=== PATIENT | male | born 1970 | race African-American/Black ===

== ENCOUNTER 2017-05-11 08:17 | Inpatient (IN) | payer OTHER ==
[2017-05-11 09:47] VITALS: BMI 25.7
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
[2017-05-11] MEDS ORDERED: MAGNESIUM HYDROX 2400MG/30ML ORAL SUSPENSION 30 ML CUP PO PRN (13:38)
[2017-05-11] MEDS ORDERED: LOPERAMIDE HCL 2 MG CAPSULE PO PRN (13:38)
[2017-05-11] MEDS ORDERED: MAG HYDROX/AL HYDROX/SIMETH 30 ML UNIT-DOSE CUP PO PRN (13:38)
[2017-05-11] MEDS ORDERED: NICOTINE POLACRILEX 4 MG GUM BUC PRN (13:38)
[2017-05-11] MEDS ORDERED: hydrOXYzine PAMOATE 50 MG CAPSULE (FP) PO PRN (13:38)
[2017-05-11] MEDS ORDERED: guaiFENesin/D-METHORPHAN HB 10 ML UNIT-DOSE CUPS PO PRN (13:38)
[2017-05-11] MEDS ORDERED: P-EPHED 60MG/TRIPROLIDI 2.5MG TABLET PO PRN (13:38)
[2017-05-11] MEDS ORDERED: MAGNESIUM CITRATE 300 ML BOTTLE PO PRN (13:38)
[2017-05-11] MEDS ORDERED: MENTHOL/PHENOL 1 EACH UD MM PRN (13:38)
[2017-05-11] MEDS ORDERED: METHADONE HCL 5 MG TABLET PO ONE (14:15)
[2017-05-11] MEDS ORDERED: TUBERCULIN PPD 5 TU/0.1ML VIAL ID ONE (15:19)
[2017-05-11] MEDS: NICOTINE 21 MG/24 HOURS TOPICAL PATCH TD SCH (15:21)
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
[2017-05-11 16:58] LABS: HEMATOCRIT 40.3 % (35.4-49); HEMOGLOBIN 13.5 GM/dL (11.7-16.9); MCH 30.2 pg (25.7-33.7); MCHC 33.5 g/dl (32.0-35.9); MEAN CELL VOLUME 90.1 fl (80-96); MEAN PLT VOLUME 9.9 fl (7.5-11.1); PLATELET COUNT 173 K/MM3 (134-434); RBC 4.48 M/mm3 (4.00-5.60); RDW 12.2 % (11.9-15.9); WHITE BLOOD COUNT 3.7 K/mm3 (4.0-10.0)
[2017-05-11 17:14] LABS: ALBUMIN 3.9 g/dl (3.4-5.0); ANION GAP 9 (8-16); BLOOD UREA NITROGEN 15 mg/dL (7-18); CALCIUM 9.1 mg/dL (8.5-10.1); CHLORIDE 105 mmol/L (98-107); CO2 28 mmol/L (21-32); CREATININE 1.2 mg/dL (0.7-1.3); GLUCOSE,RANDOM 88 mg/dL (74-106); POTASSIUM 3.8 mmol/L (3.5-5.1); SGOT/AST 26 U/L (15-37); SGPT/ALT 26 U/L (12-78); SODIUM 142 mmol/L (136-145)
[2017-05-11 17:16] LABS: ALK PHOS 103 U/L (45-117); BILIRUBIN,TOTAL 0.6 mg/dL (0.2-1.0)
[2017-05-11 17:28] LABS: SICKLE CELL SCREEN NEGATIVE (NEGATIVE)
[2017-05-11] MEDS: MIRTAZAPINE 15 MG TABLET (FP) PO SCH (21:11)
[2017-05-11] MEDS: THIAMINE HCL 100 MG TABLET (FP) PO SCH (21:11)
[2017-05-11] MEDS ORDERED: MELATONIN 5 MG TABLETS PO PRN (22:00)
[2017-05-12 03:38] LABS: URINE APPEARANCE TURBID; URINE BILIRUBIN NEGATIVE (<2.0 mg/dL); URINE BLOOD NEGATIVE (NEGATIVE); URINE COLOR YELLOW; URINE GLUCOSE (UA) NEGATIVE (NEGATIVE); URINE KETONE TRACE (NEGATIVE); URINE LEUK ESTERASE NEGATIVE (NEGATIVE); URINE NITRITE NEGATIVE (NEGATIVE); URINE PROTEIN NEGATIVE (NEGATIVE)
[2017-05-12] MEDS: METHADONE HCL 5 MG TABLET PO SCH (06:26)
[2017-05-12] MEDS: PRENATAL VITAMINS W/ FOLIC ACID TABLET (FP) PO SCH (10:14)
[2017-05-12] MEDS: NICOTINE 21 MG/24 HOURS TOPICAL PATCH TD SCH (10:15)
[2017-05-12] MEDS: IBUPROFEN 400 MG TABLET (FP) PO PRN (11:48)
[2017-05-12] MEDS: LIDOCAINE VISCOUS 2% ORAL/TOP 20 ML UNIT-DOSE CUP MM PRN (11:51)
--- NOTE | 2017-05-12 18:20 | EKG ---
Test Reason : Blood Pressure : / mmHG Vent. Rate : 066 BPM Atrial Rate : 066 BPM P-R Int : 164 ms QRS Dur : 086 ms QT Int : 390 ms P-R-T Axes : 034 006 007 degrees QTc Int : 408 ms NORMAL SINUS RHYTHM SEPTAL INFARCT ABNORMAL ECG NO PREVIOUS ECGS AVAILABLE Confirmed by MD ALEXUS, BRIAN ([id number]) on 05/12/2017 6:20:01 PM Referred By: Confirmed By:BRIAN VAUGHAN MD
[2017-05-12] MEDS: MIRTAZAPINE 15 MG TABLET (FP) PO SCH (21:31)
[2017-05-12] MEDS: THIAMINE HCL 100 MG TABLET (FP) PO SCH (21:31)
[2017-05-13] MEDS: METHADONE HCL 5 MG TABLET PO SCH (07:56)
[2017-05-13] MEDS: PRENATAL VITAMINS W/ FOLIC ACID TABLET (FP) PO SCH (10:20)
[2017-05-13] MEDS: NICOTINE 21 MG/24 HOURS TOPICAL PATCH TD SCH (10:21)
[2017-05-13] MEDS: TOLNAFTATE 1% CREAM 15 GM TUBE TP SCH ×2 (10:23→21:40)
[2017-05-13] MEDS: IBUPROFEN 400 MG TABLET (FP) PO PRN (14:21)
[2017-05-13] MEDS: LIDOCAINE VISCOUS 2% ORAL/TOP 20 ML UNIT-DOSE CUP MM PRN (14:23)
[2017-05-13] MEDS: MIRTAZAPINE 15 MG TABLET (FP) PO SCH (21:40)
[2017-05-13] MEDS: THIAMINE HCL 100 MG TABLET (FP) PO SCH (21:40)
[2017-05-14] MEDS: METHADONE HCL 5 MG TABLET PO SCH (06:33)
[2017-05-14] MEDS: IBUPROFEN 400 MG TABLET (FP) PO PRN (09:26)
[2017-05-14] MEDS: TOLNAFTATE 1% CREAM 15 GM TUBE TP SCH ×2 (09:27→21:32)
[2017-05-14] MEDS: NICOTINE 21 MG/24 HOURS TOPICAL PATCH TD SCH (09:27)
[2017-05-14] MEDS: PRENATAL VITAMINS W/ FOLIC ACID TABLET (FP) PO SCH (09:27)
[2017-05-14] MEDS: LIDOCAINE VISCOUS 2% ORAL/TOP 20 ML UNIT-DOSE CUP MM PRN (09:29)
--- NOTE | 2017-05-14 10:54 | PN ---
[facility] Progress Note Note: Patient presents with burning sensation to right tip of toes. Laboratory Tests 05/11/17 05/11/17 05/11/17 13:00 13:00 13:00 WBC 3.7 L RBC 4.48 Hgb 13.5 Hct 40.3 MCV 90.1 MCH 30.2 MCHC 33.5 RDW 12.2 Plt Count 173 MPV 9.9 Sickle Cell Screen Negative Sodium 142 Potassium 3.8 Chloride 105 Carbon Dioxide 28 Anion Gap 9 BUN 15 Creatinine 1.2 Creat Clearance w eGFR > 60 Random Glucose 88 Calcium 9.1 Total Bilirubin 0.6 AST 26 ALT 26 Alkaline Phosphatase 103 Total Protein 8.0 Albumin 3.9 Urine Color Urine Appearance Urine pH Ur Specific [place] Urine Protein Urine Glucose (UA) Urine Ketones Urine Blood Urine Nitrite Urine Bilirubin Urine Urobilinogen Ur Leukocyte Esterase RPR Titer Nonreactive 05/11/17 23:51 WBC RBC Hgb Hct MCV MCH MCHC RDW Plt Count MPV Sickle Cell Screen Sodium Potassium Chloride Carbon Dioxide Anion Gap BUN Creatinine Creat Clearance w eGFR Random Glucose Calcium Total Bilirubin AST ALT Alkaline Phosphatase Total Protein Albumin Urine Color Yellow Urine Appearance Turbid Urine pH 5.0 Ur Specific [place] 1.030 Urine Protein Negative Urine Glucose (UA) Negative Urine Ketones Trace H Urine Blood Negative Urine Nitrite Negative Urine Bilirubin Negative Urine Urobilinogen 2.0 Ur Leukocyte Esterase Negative RPR Titer Vital Signs Temperature 98.1 F 05/14/17 06:30 Pulse Rate 74 05/14/17 06:30 Respiratory Rate 20 05/14/17 06:30 Blood Pressure 120/69 05/14/17 06:30 O2 Sat by Pulse Oximetry (%) OBJ: Awake and oriented x 3. In NAD Car: S1S2, RRR, no murmurs or gallops Ext: Right foot without edema. +pedal pulse, no discoloration or redness noted. A/'P: Peripheral neuropathy Will start gabapentin 100mg BID Continue to monitor clinically
[2017-05-14] MEDS: GABAPENTIN 100 MG CAPSULE (FP) PO SCH ×2 (14:15→21:32)
[2017-05-14] MEDS: THIAMINE HCL 100 MG TABLET (FP) PO SCH (21:32)
[2017-05-14] MEDS: MIRTAZAPINE 15 MG TABLET (FP) PO SCH (21:32)
[2017-05-15] MEDS: METHADONE HCL 5 MG TABLET PO SCH (06:37)
[2017-05-15] MEDS: GABAPENTIN 100 MG CAPSULE (FP) PO SCH ×3 (06:38→21:15)
[2017-05-15] MEDS: NICOTINE 21 MG/24 HOURS TOPICAL PATCH TD SCH (10:02)
[2017-05-15] MEDS: PRENATAL VITAMINS W/ FOLIC ACID TABLET (FP) PO SCH (10:02)
[2017-05-15] MEDS: TOLNAFTATE 1% CREAM 15 GM TUBE TP SCH ×2 (10:02→21:15)
[2017-05-15] MEDS: IBUPROFEN 400 MG TABLET (FP) PO PRN ×2 (10:51→20:18)
--- NOTE | 2017-05-15 15:01 | PN ---
[facility] Progress Note Note: Patient reports feeling nauseous after taking methadone, requested methadone dose to decrease by 5mg Vital Signs Temperature 98.3 F 05/15/17 07:23 Pulse Rate 97 H 05/15/17 07:23 Respiratory Rate 17 05/15/17 07:23 Blood Pressure 109/82 05/15/17 07:23 O2 Sat by Pulse Oximetry (%) Laboratory Last Values WBC 3.7 K/mm3 (4.0-10.0) L 05/11/17 13:00 RBC 4.48 M/mm3 (4.00-5.60) 05/11/17 13:00 Hgb 13.5 GM/dL (11.7-16.9) 05/11/17 13:00 Hct 40.3 % (35.4-49) 05/11/17 13:00 MCV 90.1 fl (80-96) 05/11/17 13:00 MCH 30.2 pg (25.7-33.7) 05/11/17 13:00 MCHC 33.5 g/dl (32.0-35.9) 05/11/17 13:00 RDW 12.2 % (11.9-15.9) 05/11/17 13:00 Plt Count 173 K/MM3 (134-434) 05/11/17 13:00 MPV 9.9 fl (7.5-11.1) 05/11/17 13:00 Sickle Cell Screen Negative (NEGATIVE) 05/11/17 13:00 Sodium 142 mmol/L (136-145) 05/11/17 13:00 Potassium 3.8 mmol/L (3.5-5.1) 05/11/17 13:00 Chloride 105 mmol/L (98-107) 05/11/17 13:00 Carbon Dioxide 28 mmol/L (21-32) 05/11/17 13:00 Anion Gap 9 (8-16) 05/11/17 13:00 BUN 15 mg/dL (7-18) 05/11/17 13:00 Creatinine 1.2 mg/dL (0.7-1.3) 05/11/17 13:00 Creat Clearance w eGFR > 60 (>60) 05/11/17 13:00 Random Glucose 88 mg/dL (74-106) 05/11/17 13:00 Calcium 9.1 mg/dL (8.5-10.1) 05/11/17 13:00 Total Bilirubin 0.6 mg/dL (0.2-1.0) 05/11/17 13:00 AST 26 U/L (15-37) 05/11/17 13:00 ALT 26 U/L (12-78) 05/11/17 13:00 Alkaline Phosphatase 103 U/L (45-117) 05/11/17 13:00 Total Protein 8.0 g/dl (6.4-8.2) 05/11/17 13:00 Albumin 3.9 g/dl (3.4-5.0) 05/11/17 13:00 Urine Color Yellow 05/11/17 23:51 Urine Appearance Turbid 05/11/17 23:51 Urine pH 5.0 (5.0-8.0) 05/11/17 23:51 Ur Specific [place] 1.030 (1.001-1.035) 05/11/17 23:51 Urine Protein Negative (NEGATIVE) 05/11/17 23:51 Urine Glucose (UA) Negative (NEGATIVE) 05/11/17 23:51 Urine Ketones Trace (NEGATIVE) H 05/11/17 23:51 Urine Blood Negative (NEGATIVE) 05/11/17 23:51 Urine Nitrite Negative (NEGATIVE) 05/11/17 23:51 Urine Bilirubin Negative (<2.0 mg/dL) 05/11/17 23:51 Urine Urobilinogen 2.0 mg/dL (0.2-1.0) 05/11/17 23:51 Ur Leukocyte Esterase Negative (NEGATIVE) 05/11/17 23:51 RPR Titer Nonreactive (NONREACTIVE) 05/11/17 13:00 Methadone decrease from 15 mg to 10 mg Increase fluids Continue to monitor
[2017-05-15] MEDS: THIAMINE HCL 100 MG TABLET (FP) PO SCH (21:15)
[2017-05-15] MEDS: MIRTAZAPINE 15 MG TABLET (FP) PO SCH (21:15)
[2017-05-16] MEDS: GABAPENTIN 100 MG CAPSULE (FP) PO SCH ×3 (06:09→21:22)
[2017-05-16] MEDS: METHADONE HCL 10 MG TABLET PO SCH (06:09)
[2017-05-16] MEDS: TOLNAFTATE 1% CREAM 15 GM TUBE TP SCH ×2 (10:10→21:23)
[2017-05-16] MEDS: PRENATAL VITAMINS W/ FOLIC ACID TABLET (FP) PO SCH (10:10)
[2017-05-16] MEDS: NICOTINE 21 MG/24 HOURS TOPICAL PATCH TD SCH (10:10)
[2017-05-16] MEDS: LIDOCAINE VISCOUS 2% ORAL/TOP 20 ML UNIT-DOSE CUP MM PRN ×2 (10:11→21:50)
[2017-05-16] MEDS: IBUPROFEN 400 MG TABLET (FP) PO PRN ×2 (12:09→21:59)
[2017-05-16] MEDS: THIAMINE HCL 100 MG TABLET (FP) PO SCH (21:22)
[2017-05-16] MEDS: MIRTAZAPINE 15 MG TABLET (FP) PO SCH (21:22)
[2017-05-17] MEDS: IBUPROFEN 400 MG TABLET (FP) PO PRN ×2 (06:03→13:06)
[2017-05-17] MEDS: METHADONE HCL 10 MG TABLET PO SCH (06:03)
[2017-05-17] MEDS: GABAPENTIN 100 MG CAPSULE (FP) PO SCH ×3 (06:03→21:23)
[2017-05-17] MEDS: LIDOCAINE VISCOUS 2% ORAL/TOP 20 ML UNIT-DOSE CUP MM PRN ×2 (06:03→21:26)
[2017-05-17] MEDS: PRENATAL VITAMINS W/ FOLIC ACID TABLET (FP) PO SCH (10:05)
[2017-05-17] MEDS: NICOTINE 21 MG/24 HOURS TOPICAL PATCH TD SCH (10:05)
[2017-05-17] MEDS: TOLNAFTATE 1% CREAM 15 GM TUBE TP SCH ×2 (10:07→21:24)
[2017-05-17] MEDS: ACETAMINOPHEN 325 MG TABLET (FP) PO PRN ×2 (11:28→17:20)
[2017-05-17] MEDS: THIAMINE HCL 100 MG TABLET (FP) PO SCH (21:23)
[2017-05-17] MEDS: MIRTAZAPINE 15 MG TABLET (FP) PO SCH (21:23)
[2017-05-18] MEDS: GABAPENTIN 100 MG CAPSULE (FP) PO SCH ×3 (06:04→21:16)
[2017-05-18] MEDS: METHADONE HCL 10 MG TABLET PO SCH (06:04)
[2017-05-18] MEDS: PRENATAL VITAMINS W/ FOLIC ACID TABLET (FP) PO SCH (10:11)
[2017-05-18] MEDS: TOLNAFTATE 1% CREAM 15 GM TUBE TP SCH ×2 (10:11→21:16)
[2017-05-18] MEDS: NICOTINE 21 MG/24 HOURS TOPICAL PATCH TD SCH (10:11)
[2017-05-18] MEDS: IBUPROFEN 400 MG TABLET (FP) PO PRN ×2 (10:13→21:16)
[2017-05-18] MEDS: MIRTAZAPINE 15 MG TABLET (FP) PO SCH (21:16)
[2017-05-18] MEDS: THIAMINE HCL 100 MG TABLET (FP) PO SCH (21:16)
[2017-05-19] MEDS: METHADONE HCL 10 MG TABLET PO SCH (07:09)
[2017-05-19] MEDS: GABAPENTIN 100 MG CAPSULE (FP) PO SCH ×3 (07:09→21:18)
[2017-05-19] MEDS: IBUPROFEN 400 MG TABLET (FP) PO PRN ×3 (07:10→21:19)
[2017-05-19] MEDS: TOLNAFTATE 1% CREAM 15 GM TUBE TP SCH ×2 (10:56→22:16)
[2017-05-19] MEDS: PRENATAL VITAMINS W/ FOLIC ACID TABLET (FP) PO SCH (10:56)
[2017-05-19] MEDS: NICOTINE 21 MG/24 HOURS TOPICAL PATCH TD SCH (10:56)
[2017-05-19] MEDS: THIAMINE HCL 100 MG TABLET (FP) PO SCH (21:18)
[2017-05-19] MEDS: MIRTAZAPINE 15 MG TABLET (FP) PO SCH (21:18)
[2017-05-20] MEDS: GABAPENTIN 100 MG CAPSULE (FP) PO SCH ×3 (06:56→21:27)
[2017-05-20] MEDS: IBUPROFEN 400 MG TABLET (FP) PO PRN ×3 (06:56→21:28)
[2017-05-20] MEDS: METHADONE HCL 10 MG TABLET PO SCH (06:57)
[2017-05-20] MEDS: PRENATAL VITAMINS W/ FOLIC ACID TABLET (FP) PO SCH (10:25)
[2017-05-20] MEDS: NICOTINE 21 MG/24 HOURS TOPICAL PATCH TD SCH (10:25)
[2017-05-20] MEDS: TOLNAFTATE 1% CREAM 15 GM TUBE TP SCH ×2 (10:25→21:27)
[2017-05-20] MEDS: THIAMINE HCL 100 MG TABLET (FP) PO SCH (21:27)
[2017-05-20] MEDS: MIRTAZAPINE 15 MG TABLET (FP) PO SCH (21:27)
[2017-05-21] MEDS: IBUPROFEN 400 MG TABLET (FP) PO PRN ×3 (06:49→21:13)
[2017-05-21] MEDS: GABAPENTIN 100 MG CAPSULE (FP) PO SCH ×3 (06:49→21:13)
[2017-05-21] MEDS: METHADONE HCL 10 MG TABLET PO SCH (06:51)
[2017-05-21] MEDS: PRENATAL VITAMINS W/ FOLIC ACID TABLET (FP) PO SCH (10:19)
[2017-05-21] MEDS: TOLNAFTATE 1% CREAM 15 GM TUBE TP SCH ×2 (10:19→21:13)
[2017-05-21] MEDS: NICOTINE 21 MG/24 HOURS TOPICAL PATCH TD SCH (10:20)
[2017-05-21] MEDS: MIRTAZAPINE 15 MG TABLET (FP) PO SCH (21:13)
[2017-05-21] MEDS: THIAMINE HCL 100 MG TABLET (FP) PO SCH (21:13)
[2017-05-22] MEDS: METHADONE HCL 10 MG TABLET PO SCH (06:49)
[2017-05-22] MEDS: GABAPENTIN 100 MG CAPSULE (FP) PO SCH ×3 (06:49→21:07)
[2017-05-22] MEDS: TOLNAFTATE 1% CREAM 15 GM TUBE TP SCH ×2 (10:18→21:08)
[2017-05-22] MEDS: NICOTINE 21 MG/24 HOURS TOPICAL PATCH TD SCH (10:18)
[2017-05-22] MEDS: PRENATAL VITAMINS W/ FOLIC ACID TABLET (FP) PO SCH (10:18)
[2017-05-22] MEDS: IBUPROFEN 400 MG TABLET (FP) PO PRN ×2 (13:17→21:07)
[2017-05-22] MEDS: MIRTAZAPINE 15 MG TABLET (FP) PO SCH (21:07)
[2017-05-22] MEDS: THIAMINE HCL 100 MG TABLET (FP) PO SCH (21:07)
[2017-05-23] MEDS: GABAPENTIN 100 MG CAPSULE (FP) PO SCH (06:31)
[2017-05-23] MEDS: METHADONE HCL 10 MG TABLET PO SCH (06:31)
[2017-05-23 06:55] VITALS: BP 119/74; PULSE 106; TEMP 98.2
[2017-05-23] MEDS: TOLNAFTATE 1% CREAM 15 GM TUBE TP SCH (10:01)
[2017-05-23] MEDS: NICOTINE 21 MG/24 HOURS TOPICAL PATCH TD SCH (10:01)
[2017-05-23] MEDS: PRENATAL VITAMINS W/ FOLIC ACID TABLET (FP) PO SCH (10:01)
--- NOTE | 2017-05-23 10:52 | PN ---
Psychiatric Progress Note Vital Signs: Vital Signs Period Temp Pulse Resp BP Sys/Andres Pulse Ox Last 24 Hr 98.2 F 106 18-18 119/74 Date of Session: 05/23/17 Chief Complaint:: discharge visit HPI: Patient has addressed alcohol, nicotine, opioid, cannabis dependence comorbid PTSD and anxiety disorder. Current Medications: Active Medications Generic Name Dose Route Start Last Admin Trade Name Freq PRN Reason Stop Dose Admin Acetaminophen 650 mg 05/11/17 13:38 05/17/17 17:20 Tylenol - PO 650 mg Q4H PRN Administration FEVER Al Hydroxide/Mg Hydroxide 30 ml 05/11/17 13:38 Mylanta Oral Suspension - PO Q6H PRN DYSPEPSIA Eucalyptus/Menthol/Phenol/Sorbitol 1 each 05/11/17 13:38 Cepastat Lozenge - MM Q4H PRN SORE THROAT Gabapentin 100 mg 05/14/17 14:00 05/23/17 06:31 Neurontin - PO Not Given TID YASIR Guaifenesin 10 ml 05/11/17 13:38 Robitussin Dm - PO Q6H PRN COUGH Hydroxyzine Pamoate 50 mg 05/11/17 13:38 Vistaril - PO Q4H PRN AGITATION Ibuprofen 400 mg 05/11/17 13:38 05/22/17 21:07 Motrin - PO 400 mg Q6H PRN Administration Pain level 4-6 Lidocaine HCl 5 ml 05/11/17 13:40 05/17/17 21:26 Xylocaine 2% Viscous Oral - MM 5 ml Q4HPO PRN Administration ORAL PAIN/MOUTH SORES Loperamide HCl 4 mg 05/11/17 13:38 Imodium - PO Q6H PRN DIARRHEA Magnesium Citrate 300 ml 05/11/17 13:38 Citroma - PO Q48H PRN CONSTIPATION Magnesium Hydroxide 30 ml 05/11/17 13:38 05/21/17 14:10 Milk Of Magnesia - PO 30 ml DAILY PRN Administration CONSTIPATION Melatonin 5 mg 05/11/17 22:00 Melatonin PO HS PRN INSOMNIA Methadone HCl 10 mg 05/18/17 06:00 05/23/17 06:31 Dolophine - PO 05/25/17 05:59 Not Given DAILY@0600 YASIR Mirtazapine 15 mg 05/11/17 22:00 05/22/17 21:07 Remeron - PO 15 mg HS YASIR Administration Nicotine 21 mg 05/11/17 14:25 05/23/17 10:01 Nicoderm Patch - TD Not Given DAILY YASIR Nicotine Polacrilex 4 mg 05/11/17 13:38 Nicorette Gum - BUC Q2H PRN NICOTINE REPLACEMENT RX Multivit/Folic Acid/Iron 1 tab 05/12/17 10:00 05/23/17 10:01 Vitamins (Sjr) - PO Not Given DAILY YASIR Pseudoephedrine/Triprolidine 1 combo 05/11/17 13:38 Actifed - PO TID PRN NASAL CONGESTION Thiamine HCl 100 mg 05/11/17 22:00 05/22/17 21:07 Vitamin B1 - PO 100 mg HS YASIR Administration Tolnaftate 1 applic 05/13/17 10:00 05/23/17 10:01 Tinactin 1% Cream - TP Not Given BID YASIR Current Side Effect: No Lab tests ordered: No Lab tests reviewed: Yes Provider note:: Patient has completed today his treatment and met his identified goals, will continue to address his issues at [facility] outpatient [facility], he gained insights into his addiction, verbalized understanding the negtive impact his adiiction and motivated to continue maintain abstinence, patient was encouraged to utilize all supports available to prevent relapses. Patient continues to finding Remeron helpfull, no side- effects reported, scripts provided for 30 days, stable for discharge today. Total face to face time:: 15 Mental Status Exam - Mental Status Exam Alert and Oriented to: Time, Place, Person Cognitive Function: Good Patient Appearance: Well Groomed Mood: Hopeful Affect: Appropriate, Mood Congruent Patient Behavior: Appropriate, Cooperative Speech Pattern: Clear, Appropriate Voice Loudness: Normal Thought Process: Intact, Goal Oriented Thought Disorder: Not Present Hallucinations: Denies Suicidal Ideation: Denies Homicidal Ideation: Denies Insight/Judgement: Fair Sleep: Fair Appetite: Fair Muscle strength/Tone: Normal Gait/Station: Normal Psychiatric Treatment Plan - Problem List (6) Nicotine dependence Qualifiers: Nicotine product type: cigarettes Substance use status: in withdrawal Qualified Code(s): F17.213 - Nicotine dependence, cigarettes, with withdrawal
== END 2017-05-23 11:30 | disposition home or self-care (01) | DRG 772 ==
LOC: YASAS 08:17 → Y5N 13:57
PROVIDERS: ADMIT Psychiatry & Neurology Psychiatry; ATTEND Psychiatry & Neurology Psychiatry
PROC: HZ42ZZZ Group Counseling for Substance Abuse Treatment, Cognitive-Behavioral (ICD-10-PCS; principal; 2017-05-11)
DX: F11.20 Opioid dependence, uncomplicated (principal); F10.20 Alcohol dependence, uncomplicated; F12.20 Cannabis dependence, uncomplicated; F17.213 Nicotine dependence, cigarettes, with withdrawal; F43.10 Post-traumatic stress disorder, unspecified; F31.9 Bipolar disorder, unspecified; G47.00 Insomnia, unspecified; G62.9 Polyneuropathy, unspecified; Z87.828 Personal history of other (healed) physical injury and trauma; Z59.0 Homelessness
CPT/HCPCS: 36415; 80053; 81003; 85027; 85660; 86593; 93005; 93010